=== PATIENT | female | born 1985 | race Two or more races ===

== ENCOUNTER 2016-07-08 09:50 | Inpatient (IN) | payer BC ==
[2016-07-08] MEDS ORDERED: Oxytocin in LR* 20 UNITS/1,000 ML BAG IVPB ONE (10:44)
[2016-07-08 10:59] LABS: Hematocrit 42 % (35-47); Mean Corpuscular HGB Conc 33 g/dl (31-36); Mean Corpuscular Hemoglobin 29 pg (27-31); Mean Corpuscular Volume 86 fL (80-97); Mean Platelet Volume 9 um3 (7.4-10.4); Red Blood Count 4.89 10^6/ul (4.0-5.4); Red Cell Distribution Width 13 % (10.5-15); White Blood Count 14.7 10^3/ul (3.5-10.8)
[2016-07-08] MEDS ORDERED: Dibucaine 1% 28.35 GM TUBE PR PRN (11:58)
[2016-07-08] MEDS ORDERED: Ibuprofen TAB* 600 MG PO PRN (11:58)
[2016-07-08] MEDS ORDERED: Acetaminophen TAB* 325 MG PO PRN (11:58)
[2016-07-08] MEDS ORDERED: oxyCODONE/Acetamin 5/325 MG* TAB PO PRN (11:58)
[2016-07-08] MEDS ORDERED: Witch Hazel PAD* JAR TOPICAL PRN (11:58)
[2016-07-08] MEDS ORDERED: Oxytocin in LR* 20 UNITS/1,000 ML BAG IVPB SCH (12:00)
[2016-07-08] MEDS ORDERED: Simethicone CHEW TAB* 80 MG PO SCH (12:30)
[2016-07-08] MEDS: Docusate CAP* 100 MG PO SCH ×2 (16:39→21:00)
[2016-07-09 08:30] LABS: Hematocrit 39 % (35-47); Mean Corpuscular HGB Conc 33 g/dl (31-36); Mean Corpuscular Hemoglobin 29 pg (27-31); Mean Corpuscular Volume 87 fL (80-97); Mean Platelet Volume 8 um3 (7.4-10.4); Red Blood Count 4.47 10^6/ul (4.0-5.4); Red Cell Distribution Width 13 % (10.5-15)
[2016-07-09] MEDS ORDERED: Ferrous Gluconate TAB* 324 MG TAB PO SCH (09:00)
[2016-07-09] MEDS: Docusate CAP* 100 MG PO SCH ×2 (17:55→20:26)
[2016-07-10 08:34] VITALS: BP 126/73
[2016-07-10] MEDS: Docusate CAP* 100 MG PO SCH (09:08)
== END 2016-07-10 11:43 | disposition home or self-care (01) | DRG 560 ==
LOC: MCHOBOUT 09:50 → MCHOB 10:21
PROVIDERS: ADMIT Midwife; ATTEND Midwife
PROC: 10E0XZZ Delivery of Products of Conception, External Approach (ICD-10-PCS; principal; 2016-07-08)
PROC: 0HQ9XZZ Repair Perineum Skin, External Approach (ICD-10-PCS; 2016-07-08)
DX: O62.3 Precipitate labor (principal); O70.4 Anal sphincter tear complicating delivery, not associated with third degree laceration; O48.0 Post-term pregnancy; O99.824 Streptococcus B carrier state complicating childbirth; O77.0 Labor and delivery complicated by meconium in amniotic fluid; Z3A.40 40 weeks gestation of pregnancy; Z37.0 Single live birth
CPT/HCPCS: 36415; 85025; 86850; 86900; 86901; A9270-GY